=== PATIENT | male | born 1945 | race Caucasian/White ===

== ENCOUNTER 2016-03-15 15:48 | Inpatient (IN) | payer OTHER, MEDICARE ==
[~2016-03-15] VITALS: Ht 182.9 cm; Wt 108.3 kg
[~2016-03-15 15:48] MED LIST: ALEVE220 MG PO; ATORVASTATIN CA20 MG PO; CYANOCOBALAM1000 MCG PO; DECADRON4 MG PO; FENOFIBRATE134 M1 PO; GLIMEPIRIDE1 MG PO; HYZAAR 100-11 TABLET PO; LOSARTAN POTAS100 MG PO; MELOXICAM15 MG PO; METFORMIN HCL500 M1 PO; NORVASC5 MG PO; OMEPRAZOLE20 MG PO
[2016-03-15 18:03] LABS: EOSINOPHIL (%) 0 % (0-5); HEMATOCRIT 34.7 % (38.0-50.0); IMMATURE GRANULOCYTE (%) 0.6 % (0.0-0.7); IMMATURE GRANULOCYTE COUNT 0.9 K/uL; LYMPHOCYTE COUNT 0.4 K/uL (1.0-2.8); MCH 27.4 PG (29.0-34.0); MCHC 34.9 G/DL (30.0-36.0); MONOCYTE (%) 2.8 % (3-12); MONOCYTE COUNT 0.4 K/uL (0-0.8); NEUTROPHIL COUNT 13.3 K/uL (1.8-6.4); RBC DIS.WIDTH-CV 16.1 % (11.8-14.6); RBC DIS.WIDTH-SD 45.1 % (39-53); RED BLOOD COUNT 4.42 M/uL (4.00-5.50)
[2016-03-15 18:04] LABS: MCV 78.5 FL (86-99); WHITE BLOOD COUNT 14.1 K/uL (4.1-10.2)
[2016-03-15 18:10] LABS: CHLORIDE 88 mEq/L (99-109); POTASSIUM 4.4 mEq/L (3.7-5.4); SODIUM 123 mEq/L (136-147)
[2016-03-15 18:13] LABS: ANION GAP 18 MEQ/L (2-14)
[2016-03-15 18:14] LABS: TOTAL BILIRUBIN 0.9 mg/dL (0.0-1.0)
[2016-03-15 18:16] LABS: ALKALINE PHOSPHATASE 36 IU/L (3-129); GFR ESTIMATE (CALCULATED) > 59 mL/min/
[2016-03-15 18:17] LABS: UREA NITROGEN (BUN) 64 mg/dL (9-23)
[2016-03-15 18:19] LABS: GLUCOSE 564 mg/dL (70-99)
[2016-03-15 19:11] LABS: HEMATOLOGY COMMENT 1 SMEAR COMPATIBLE; MEAN PLAT.VOLUME 9.5 uM^3 (9.0-12.4); PLAT.SUFFICIENCY DECREASED; USER ID LYM
[2016-03-15 19:58] LABS: ADD MIUA? NO; BILIRUBIN NEGATIVE; BLOOD NEGATIVE; COLOR YELLOW ((YELLOW)); GLUCOSE (STRIP) >=1000; KETONES 15; LEUKOCYTES NEGATIVE; NITRITE NEGATIVE; PROTEIN (STRIP) NEGATIVE; SPECIFIC GRAVITY 1.032 (1.000-1.030); UCUL ADDED? NO; UROBILINOGEN 0.2 MG/DL (0.2-1.0)
[2016-03-15] MEDS ORDERED: NORVASC5 MG PO (20:15)
[2016-03-15 20:16] LABS: PLATELET COUNT 114 K/uL (156-360)
[2016-03-15] MEDS ORDERED: LOSARTAN POTAS100 MG PO (20:16)
[2016-03-15 20:21] LABS: POINT-OF-CARE METER ID UU13113702
[2016-03-15] MEDS ORDERED: MICRONASE2.5 MG PO (20:25)
[2016-03-15] MEDS ORDERED: GLUCOPHAGE500 MG PO ×2 (20:26)
[2016-03-15] MEDS ORDERED: LORAZEPAM0.5 MG PO (20:27)
[2016-03-15 21:59] LABS: POINT-OF-CARE METER ID UU13113702
[2016-03-15 22:30] VITALS: BP 147/78; BP 148/76
[2016-03-16 00:11] LABS: POTASSIUM 3.8 mEq/L (3.7-5.4); SODIUM 128 mEq/L (136-147)
[2016-03-16 00:12] LABS: GLUCOSE 364 mg/dL (70-99)
[2016-03-16 00:14] LABS: ANION GAP 15 MEQ/L (2-14)
[2016-03-16 00:16] LABS: GFR ESTIMATE (CALCULATED) > 59 mL/min/
[2016-03-16 00:17] LABS: UREA NITROGEN (BUN) 54 mg/dL (9-23)
[2016-03-16 00:21] LABS: CHLORIDE 97 mEq/L (99-109)
[2016-03-16 03:44] VITALS: BP 120/74
[2016-03-16 05:03] LABS: CHLORIDE 98 mEq/L (99-109); POTASSIUM 3.7 mEq/L (3.7-5.4); SODIUM 128 mEq/L (136-147)
[2016-03-16 05:05] LABS: GLUCOSE 286 mg/dL (70-99)
[2016-03-16 05:07] LABS: ANION GAP 10 MEQ/L (2-14)
[2016-03-16 05:09] LABS: GFR ESTIMATE (CALCULATED) > 59 mL/min/
[2016-03-16 05:10] LABS: UREA NITROGEN (BUN) 47 mg/dL (9-23)
[2016-03-16 05:15] LABS: HEMATOCRIT 31.4 % (38.0-50.0); MCHC 34.4 G/DL (30.0-36.0); MCV 78.5 FL (86-99); MEAN PLAT.VOLUME 9.2 uM^3 (9.0-12.4); PLATELET COUNT 101 K/uL (156-360); RBC DIS.WIDTH-CV 15.9 % (11.8-14.6); RBC DIS.WIDTH-SD 43.9 % (39-53)
[2016-03-16 05:16] LABS: WHITE BLOOD COUNT 9.1 K/uL (4.1-10.2)
[2016-03-16 07:59] VITALS: BP 100/64
[2016-03-16 11:32] VITALS: BP 102/63
[2016-03-16 15:36] VITALS: BP 110/66
[2016-03-16 19:45] VITALS: BP 118/60
[2016-03-17] VITALS (7 sets, daily range): BP systolic 100–129; BP diastolic 63–76
[2016-03-17 08:05] LABS: POINT-OF-CARE METER ID UU13113698
[2016-03-17 12:04] LABS: POINT-OF-CARE METER ID UU13113698
[2016-03-18 04:14] VITALS: BP 121/80
[2016-03-18 07:52] LABS: POINT-OF-CARE METER ID UU14174216; POINT-OF-CARE USER ID ENVKC36
[2016-03-18 08:10] VITALS: BP 115/70
[2016-03-18 11:45] VITALS: BP 108/73
[2016-03-18 11:48] LABS: POINT-OF-CARE METER ID UU14174216; POINT-OF-CARE USER ID ENVKC36
[2016-03-18 16:30] VITALS: BP 110/74
[2016-03-18 17:03] LABS: POINT-OF-CARE METER ID UU13113698; POINT-OF-CARE USER ID ENVKC36
[2016-03-18 19:40] VITALS: BP 114/57
[2016-03-18 23:30] VITALS: BP 120/78
[2016-03-19 04:50] VITALS: BP 132/70
[2016-03-19 07:02] LABS: POINT-OF-CARE METER ID UU14174216
[2016-03-19 07:14] LABS: Estimated Average Glucose 280 mg/dL (70-123)
[2016-03-19 07:16] LABS: HEMOGLOBIN A1c (GLYCOHEMOGLOB) 11.4 % HGB (Below 5.7)
[2016-03-19 07:32] LABS: ANION GAP 6 MEQ/L (2-14); CHLORIDE 100 MEQ/L (99-109); GFR ESTIMATE (CALCULATED) > 59 mL/min/; GLUCOSE 140 mg/dL (70-99); POTASSIUM 3.9 MEQ/L (3.7-5.4); SAMPLE HEMOLYSIS CHECK 0; SAMPLE ICTERIC CHECK 0; SAMPLE LIPEMIA CHECK 0; SODIUM 130 MEQ/L (136-147); UREA NITROGEN (BUN) 24 mg/dL (9-23)
[2016-03-19 07:43] LABS: POINT-OF-CARE METER ID UU13113698
[2016-03-19 11:19] LABS: POINT-OF-CARE METER ID UU13113698
[2016-03-19 11:47] VITALS: BP 117/71
[2016-03-19 15:57] LABS: POINT-OF-CARE METER ID UU13113698
[2016-03-19 15:58] VITALS: BP 129/78
[2016-03-19 19:13] VITALS: BP 124/73
[2016-03-19 20:42] LABS: POINT-OF-CARE USER ID ENVMNS
[2016-03-19 23:14] VITALS: BP 120/79
[2016-03-20 03:24] VITALS: BP 125/74
[2016-03-20 07:40] VITALS: BP 112/66
[2016-03-20 08:08] LABS: POINT-OF-CARE METER ID UU13113698; POINT-OF-CARE USER ID ENVKC36
[2016-03-20 14:01] LABS: POINT-OF-CARE METER ID UU13113698
[2016-03-20 15:00] VITALS: BP 107/66
[2016-03-20 16:51] LABS: POINT-OF-CARE METER ID UU14174216; POINT-OF-CARE USER ID ENVKC36
[2016-03-20 20:20] VITALS: BP 119/76
[2016-03-20 21:33] LABS: POINT-OF-CARE METER ID UU13113698
[2016-03-21 00:10] VITALS: BP 129/77
[2016-03-21 03:52] VITALS: BP 116/71
[2016-03-21 07:57] VITALS: BP 128/78
[2016-03-21 09:03] LABS: HEMATOCRIT 30.5 % (38.0-50.0); MCH 27.6 PG (29.0-34.0); MCHC 35.1 G/DL (30.0-36.0); MCV 78.8 FL (86-99); MEAN PLAT.VOLUME 9.5 uM^3 (9.0-12.4); PLATELET COUNT 123 K/uL (156-360); RBC DIS.WIDTH-CV 16.4 % (11.8-14.6); RBC DIS.WIDTH-SD 47.3 % (39-53); RED BLOOD COUNT 3.87 M/uL (4.00-5.50); WHITE BLOOD COUNT 6.6 K/uL (4.1-10.2)
[2016-03-21 09:27] LABS: ALKALINE PHOSPHATASE 33 IU/L (3-129); ANION GAP 12 MEQ/L (2-14); CHLORIDE 95 MEQ/L (99-109); GFR ESTIMATE (CALCULATED) > 59 mL/min/; GLUCOSE 131 mg/dL (70-99); SAMPLE HEMOLYSIS CHECK 0; SAMPLE ICTERIC CHECK 0; SAMPLE LIPEMIA CHECK 0; SODIUM 128 MEQ/L (136-147); TOTAL BILIRUBIN 0.6 MG/DL (0.0-1.0); UREA NITROGEN (BUN) 17 mg/dL (9-23)
[2016-03-21 09:41] LABS: CREATINE KINASE 54 IU/L (1-294)
[2016-03-21 11:29] VITALS: BP 119/74
[2016-03-21 15:51] VITALS: BP 113/74
[2016-03-21 16:06] LABS: URIC ACID 2.1 mg/dL (3.1-9.2)
[2016-03-21 19:00] VITALS: BP 116/75
[2016-03-21 21:27] LABS: POINT-OF-CARE METER ID UU14174216
[2016-03-22 00:20] VITALS: BP 94/53
[2016-03-22 03:15] VITALS: BP 119/79
[2016-03-22 06:48] LABS: HEMATOCRIT 30.4 % (38.0-50.0); MCH 27.4 PG (29.0-34.0); MCHC 34.5 G/DL (30.0-36.0); MCV 79.4 FL (86-99); MEAN PLAT.VOLUME 9.8 uM^3 (9.0-12.4); PLATELET COUNT 133 K/uL (156-360); RBC DIS.WIDTH-CV 16.5 % (11.8-14.6); RBC DIS.WIDTH-SD 48.2 % (39-53); RED BLOOD COUNT 3.83 M/uL (4.00-5.50); WHITE BLOOD COUNT 6.1 K/uL (4.1-10.2)
[2016-03-22 07:00] VITALS: BP 123/82
[2016-03-22 07:21] LABS: ANION GAP 10 MEQ/L (2-14); CHLORIDE 96 MEQ/L (99-109); GFR ESTIMATE (CALCULATED) > 59 mL/min/; POTASSIUM 3.9 MEQ/L (3.7-5.4); SAMPLE HEMOLYSIS CHECK 0; SAMPLE ICTERIC CHECK 0; SAMPLE LIPEMIA CHECK 0; SODIUM 128 MEQ/L (136-147); UREA NITROGEN (BUN) 19 mg/dL (9-23)
[2016-03-22 07:24] LABS: GLUCOSE 230 mg/dL (70-99)
[2016-03-22 07:30] LABS: POINT-OF-CARE METER ID UU13113698
[2016-03-22 07:48] LABS: EOSINOPHIL (%) 0.5 % (0-5); HEMATOLOGY COMMENT 1 SMEAR COMPATIBLE; IMMATURE GRANULOCYTE COUNT 0.2 K/uL; LYMPHOCYTE COUNT 0.7 K/uL (1.0-2.8); MONOCYTE (%) 1.6 % (3-12); MONOCYTE COUNT 0.1 K/uL (0-0.8); NEUTROPHIL (%) 82.7 % (45-76); NEUTROPHIL COUNT 5.1 K/uL (1.8-6.4); USER ID STC
[2016-03-22 10:02] LABS: POINT-OF-CARE METER ID UU13113698; POINT-OF-CARE USER ID ENVKC36
[2016-03-22 11:10] LABS: POINT-OF-CARE METER ID UU13113698
[2016-03-22 11:30] VITALS: BP 125/88
[2016-03-22 15:45] VITALS: BP 120/77
[2016-03-22 19:00] VITALS: BP 112/60
[2016-03-22 20:04] LABS: POINT-OF-CARE METER ID UU14149398
[2016-03-22 22:00] LABS: POINT-OF-CARE METER ID UU14149396
[2016-03-23] VITALS: BP 120/68
[2016-03-23 06:46] LABS: HEMATOCRIT 32.2 % (38.0-50.0); MCH 27.6 PG (29.0-34.0); MCHC 34.5 G/DL (30.0-36.0); MCV 80.1 FL (86-99); MEAN PLAT.VOLUME 9.2 uM^3 (9.0-12.4); PLATELET COUNT 130 K/uL (156-360); RBC DIS.WIDTH-CV 16.8 % (11.8-14.6); RED BLOOD COUNT 4.02 M/uL (4.00-5.50); WHITE BLOOD COUNT 5.5 K/uL (4.1-10.2)
[2016-03-23 07:04] LABS: EOSINOPHIL (%) 1.3 % (0-5); EOSINOPHIL COUNT 0.1 K/uL (0-0.3); IMMATURE GRANULOCYTE (%) 4.2 % (0.0-0.7); IMMATURE GRANULOCYTE COUNT 0.2 K/uL; LYMPHOCYTE COUNT 0.4 K/uL (1.0-2.8); MONOCYTE (%) 12.2 % (3-12); MONOCYTE COUNT 0.7 K/uL (0-0.8); NEUTROPHIL (%) 74.8 % (45-76); NEUTROPHIL COUNT 4.1 K/uL (1.8-6.4)
[2016-03-23 07:10] LABS: ALKALINE PHOSPHATASE 39 IU/L (3-129); ANION GAP 9 MEQ/L (2-14); CHLORIDE 96 MEQ/L (99-109); GFR ESTIMATE (CALCULATED) > 59 mL/min/; SAMPLE HEMOLYSIS CHECK 0; SAMPLE ICTERIC CHECK 0; SAMPLE LIPEMIA CHECK 0; SODIUM 130 MEQ/L (136-147); TOTAL BILIRUBIN 0.6 MG/DL (0.0-1.0); UREA NITROGEN (BUN) 21 mg/dL (9-23)
[2016-03-23 07:11] LABS: GLUCOSE 110 mg/dL (70-99)
[2016-03-23 07:39] LABS: POINT-OF-CARE METER ID UU14149396
[2016-03-23 07:49] LABS: HEMATOLOGY COMMENT 1 SMEAR COMPATIBLE; USER ID CL
[2016-03-23 08:00] VITALS: BP 118/70
[2016-03-23 10:58] LABS: POINT-OF-CARE METER ID UU13113698
[2016-03-23 11:27] VITALS: BP 117/63
[2016-03-23] MEDS ORDERED: NOVOLOG PE100 UNITS/ SC (11:59)
[2016-03-23] MEDS ORDERED: SODIUM CHLORIDE1 G1 PO (11:59)
[2016-03-23] MEDS ORDERED: LEVEMIR100 UNIT/2 SC (11:59)
[2016-03-23 12:00] LABS: POINT-OF-CARE METER ID UU14149396
[2016-03-23] MEDS ORDERED: DEXAMETHASONE4 MG PO (12:10)
== END 2016-03-23 13:53 | disposition home or self-care (01) | DRG 637 ==
LOC: EME 15:48 → 4EAST 20:33 → EDOF 20:33 → 4EAST 22:38 → 4SOUTH 03-22 19:42
PROVIDERS: Emergency Medicine; Family Medicine; Hospitalist; Internal Medicine; Student in an Organized Health Care Education/Training Program
DX: E13.10 Other specified diabetes mellitus with ketoacidosis without coma (principal); G93.6 Cerebral edema; C34.90 Malignant neoplasm of unspecified part of unspecified bronchus or lung; C79.31 Secondary malignant neoplasm of brain; F05 Delirium due to known physiological condition; E22.2 Syndrome of inappropriate secretion of antidiuretic hormone; L89.300 Pressure ulcer of unspecified buttock, unstageable; I10 Essential (primary) hypertension; K21.9 Gastro-esophageal reflux disease without esophagitis; D50.9 Iron deficiency anemia, unspecified; E86.0 Dehydration; D69.6 Thrombocytopenia, unspecified; M62.81 Muscle weakness (generalized); K59.00 Constipation, unspecified; F43.20 Adjustment disorder, unspecified; E78.5 Hyperlipidemia, unspecified; Z55.0 Illiteracy and low-level literacy; Z87.891 Personal history of nicotine dependence; Z79.4 Long term (current) use of insulin; Z80.0 Family history of malignant neoplasm of digestive organs
CPT/HCPCS: 77290; 77307; 77331; 77334; 77336; 77412; 77417; 80048; 80048 91; 80053; 80069; 81003; 82009; 82550; 82948; 83036; 83605; 83930; 83935; 84300; 84443; 84550; 85025; 85027; 87040; 94799; 99281; 99285; J1644; J1650; J1815; J7030; J8540

== ENCOUNTER 2016-03-25 10:36 | Inpatient (IN) | payer OTHER, MEDICARE ==
[~2016-03-25] VITALS: Ht 182.9 cm; Wt 89.8 kg
[~2016-03-25 10:36] MED LIST changes: +DEXAMETHASONE4 MG PO; +GLUCOPHAGE500 MG PO; +LEVEMIR100 UNIT/2 SC; +LORAZEPAM0.5 MG PO; +MICRONASE2.5 MG PO; +NOVOLOG PE100 UNITS/ SC; +SODIUM CHLORIDE1 G1 PO
[2016-03-25 12:13] LABS: HEMATOCRIT 29.5 % (38.0-50.0); MCH 27.5 PG (29.0-34.0); MCHC 34.2 G/DL (30.0-36.0); MCV 80.4 FL (86-99); MEAN PLAT.VOLUME 9.2 uM^3 (9.0-12.4); PLATELET COUNT 127 K/uL (156-360); RBC DIS.WIDTH-CV 16.8 % (11.8-14.6); RBC DIS.WIDTH-SD 47.2 % (39-53); RED BLOOD COUNT 3.67 M/uL (4.00-5.50); WHITE BLOOD COUNT 5.9 K/uL (4.1-10.2)
[2016-03-25 12:20] LABS: EOSINOPHIL (%) 0.3 % (0-5); IMMATURE GRANULOCYTE (%) 0.8 % (0.0-0.7); IMMATURE GRANULOCYTE COUNT 0.5 K/uL; LYMPHOCYTE COUNT 0.2 K/uL (1.0-2.8); MONOCYTE (%) 2.4 % (3-12); MONOCYTE COUNT 0.1 K/uL (0-0.8); NEUTROPHIL (%) 93.1 % (45-76); NEUTROPHIL COUNT 5.5 K/uL (1.8-6.4)
[2016-03-25 12:24] LABS: CHLORIDE 99 mEq/L (99-109); POTASSIUM 3.6 mEq/L (3.7-5.4); SODIUM 131 mEq/L (136-147)
[2016-03-25 12:27] LABS: GLUCOSE 89 mg/dL (70-99)
[2016-03-25 12:28] LABS: ANION GAP 13 MEQ/L (2-14)
[2016-03-25 12:29] LABS: TOTAL BILIRUBIN 0.7 mg/dL (0.0-1.0)
[2016-03-25 12:30] LABS: ALKALINE PHOSPHATASE 45 IU/L (3-129); GFR ESTIMATE (CALCULATED) > 59 mL/min/
[2016-03-25 12:31] LABS: UREA NITROGEN (BUN) 22 mg/dL (9-23)
[2016-03-25 14:47] LABS: ADD MIUA? NO; BILIRUBIN NEGATIVE; BLOOD NEGATIVE; COLOR YELLOW ((YELLOW)); GLUCOSE (STRIP) 250; KETONES NEGATIVE; LEUKOCYTES NEGATIVE; NITRITE NEGATIVE; PROTEIN (STRIP) 30; SPECIFIC GRAVITY 1.024 (1.000-1.030); UCUL ADDED? NO
[2016-03-25] MEDS ORDERED: NOVOLOG PE100 UNITS/ SC (17:47)
[2016-03-25] MEDS ORDERED: DECADRON4 MG PO (19:05)
[2016-03-25 20:50] VITALS: BP 107/59
[2016-03-25 22:26] LABS: POINT-OF-CARE METER ID UU13113717
[2016-03-26 00:13] VITALS: BP 99/54
[2016-03-26 06:03] LABS: POINT-OF-CARE METER ID UU13113717
[2016-03-26 07:13] LABS: HEMATOCRIT 27.8 % (38.0-50.0); MCH 27.4 PG (29.0-34.0); MCHC 33.5 G/DL (30.0-36.0); PLATELET COUNT 107 K/uL (156-360); RBC DIS.WIDTH-CV 17.4 % (11.8-14.6); RBC DIS.WIDTH-SD 52.2 % (39-53); RED BLOOD COUNT 3.39 M/uL (4.00-5.50); WHITE BLOOD COUNT 4.2 K/uL (4.1-10.2)
[2016-03-26 07:46] LABS: ANION GAP 7 MEQ/L (2-14); CHLORIDE 104 MEQ/L (99-109); GFR ESTIMATE (CALCULATED) > 59 mL/min/; GLUCOSE 62 mg/dL (70-99); POTASSIUM 3.7 MEQ/L (3.7-5.4); SAMPLE HEMOLYSIS CHECK 0; SAMPLE ICTERIC CHECK 0; SAMPLE LIPEMIA CHECK 0; SODIUM 135 MEQ/L (136-147); UREA NITROGEN (BUN) 20 mg/dL (9-23)
[2016-03-26 08:13] VITALS: BP 98/55
[2016-03-26 11:18] LABS: POINT-OF-CARE METER ID UU13113725
[2016-03-26 15:50] LABS: POINT-OF-CARE METER ID UU13113725
[2016-03-26 16:02] VITALS: BP 110/58
[2016-03-26 23:40] VITALS: BP 113/59
[2016-03-27 07:32] LABS: HEMATOCRIT 26.3 % (38.0-50.0); MCH 27.5 PG (29.0-34.0); MCHC 33.8 G/DL (30.0-36.0); MCV 81.2 FL (86-99); MEAN PLAT.VOLUME 8.7 uM^3 (9.0-12.4); PLATELET COUNT 99 K/uL (156-360); RBC DIS.WIDTH-CV 17.5 % (11.8-14.6); RBC DIS.WIDTH-SD 52.1 % (39-53); RED BLOOD COUNT 3.24 M/uL (4.00-5.50); WHITE BLOOD COUNT 4.2 K/uL (4.1-10.2)
[2016-03-27 07:39] LABS: EOSINOPHIL (%) 0 % (0-5); LYMPHOCYTE COUNT 0.1 K/uL (1.0-2.8); MONOCYTE (%) 2.9 % (3-12); MONOCYTE COUNT 0.1 K/uL (0-0.8); NEUTROPHIL (%) 93.2 % (45-76); NEUTROPHIL COUNT 3.9 K/uL (1.8-6.4)
[2016-03-27 08:03] LABS: ANION GAP 7 MEQ/L (2-14); CHLORIDE 103 MEQ/L (99-109); GFR ESTIMATE (CALCULATED) > 59 mL/min/; GLUCOSE 84 mg/dL (70-99); POTASSIUM 3.5 MEQ/L (3.7-5.4); SAMPLE HEMOLYSIS CHECK 0; SAMPLE ICTERIC CHECK 0; SAMPLE LIPEMIA CHECK 0; SODIUM 134 MEQ/L (136-147); UREA NITROGEN (BUN) 12 mg/dL (9-23)
[2016-03-27 08:34] VITALS: BP 154/89
[2016-03-27 13:34] LABS: POINT-OF-CARE METER ID UU13113725
[2016-03-27 15:58] LABS: POINT-OF-CARE METER ID UU13113725
[2016-03-27 16:24] VITALS: BP 123/60
[2016-03-27 21:46] LABS: POINT-OF-CARE METER ID UU13113725
[2016-03-27 22:09] LABS: POINT-OF-CARE METER ID UU13113725
[2016-03-27 22:29] LABS: POINT-OF-CARE METER ID UU13113725
[2016-03-27 23:16] VITALS: BP 161/72
[2016-03-27 23:45] LABS: POINT-OF-CARE METER ID UU13113725
[2016-03-28] VITALS (22 sets, daily range): BP systolic 94–127; BP diastolic 56–77
[2016-03-28 02:03] LABS: BASE EXCESS 5.4 mEq/L (-3 to +3); BICARBONATE 28.7 mEq/L (22-26); CARBOXY HGB 0 % (0-5); COMMENTS - BLOOD GASES C+A+; METHEMOGLOBIN 0.7 % (0-1.5); PCO2 36 mm Hg (35-45); PO2 61 mm Hg (80-100); SITE RR; pH 7.51 (7.35-7.45)
[2016-03-28 02:04] LABS: DEVICE HHFNC/NRBM; FI02 100 %; O2 FLOW 60 L/MIN
[2016-03-28 02:30] LABS: HEMATOCRIT 27.4 % (38.0-50.0); MCH 27.3 PG (29.0-34.0); MCHC 33.9 G/DL (30.0-36.0); MCV 80.4 FL (86-99); MEAN PLAT.VOLUME 8.4 uM^3 (9.0-12.4); PLATELET COUNT 109 K/uL (156-360); RBC DIS.WIDTH-CV 17.4 % (11.8-14.6); RBC DIS.WIDTH-SD 48.8 % (39-53); RED BLOOD COUNT 3.41 M/uL (4.00-5.50); WHITE BLOOD COUNT 4.4 K/uL (4.1-10.2)
[2016-03-28 02:34] LABS: EOSINOPHIL (%) 0.5 % (0-5); IMMATURE GRANULOCYTE (%) 0.7 % (0.0-0.7); IMMATURE GRANULOCYTE COUNT 0.3 K/uL; LYMPHOCYTE COUNT 0.1 K/uL (1.0-2.8); MONOCYTE (%) 2.3 % (3-12); MONOCYTE COUNT 0.1 K/uL (0-0.8); NEUTROPHIL (%) 93.5 % (45-76); NEUTROPHIL COUNT 4.1 K/uL (1.8-6.4)
[2016-03-28 02:42] LABS: CHLORIDE 100 mEq/L (99-109); POTASSIUM 3.6 mEq/L (3.7-5.4); SODIUM 134 mEq/L (136-147)
[2016-03-28 02:44] LABS: GLUCOSE 103 mg/dL (70-99)
[2016-03-28 02:45] LABS: ANION GAP 9 MEQ/L (2-14)
[2016-03-28 02:46] LABS: TOTAL BILIRUBIN 0.6 mg/dL (0.0-1.0)
[2016-03-28 02:48] LABS: ALKALINE PHOSPHATASE 44 IU/L (3-129); GFR ESTIMATE (CALCULATED) > 59 mL/min/
[2016-03-28 02:49] LABS: UREA NITROGEN (BUN) 13 mg/dL (9-23)
[2016-03-28 04:03] LABS: METH RESISTANT S AUREUS PCR NEGATIVE (NEGATIVE)
[2016-03-28 04:11] LABS: PROBE CHECK PASS; SPECIMEN PROCESSING CONTROL PASS
[2016-03-28 04:32] LABS: ADD MIUA? YES; BILIRUBIN NEGATIVE; BLOOD TRACE; COLOR YELLOW ((YELLOW)); GLUCOSE (STRIP) 250; KETONES NEGATIVE; LEUKOCYTES NEGATIVE; NITRITE NEGATIVE; PROTEIN (STRIP) 30; SPECIFIC GRAVITY 1.012 (1.000-1.030)
[2016-03-28 04:47] LABS: BACTERIA 2+; CASTS PRESENT /LPF; EPITHELIAL CELLS 1+; MUCUS 1+; RED BLOOD CELLS 0-5 /HPF (0-5); UCUL ADDED? NO; WHITE BLOOD CELLS 0-5 /HPF (0-5)
[2016-03-28 04:48] LABS: AMORPHOUS URATES CRYSTALS 1+; CRYSTALS PRESENT; FINE GRANULAR CASTS 0-5 /LPF
[2016-03-28 05:36] LABS: PCO2 35 mm Hg (35-45); PO2 86 mm Hg (80-100); pH 7.53 (7.35-7.45)
[2016-03-28 05:37] LABS: BASE EXCESS 6.2 mEq/L (-3 to +3); BICARBONATE 29.2 mEq/L (22-26); CARBOXY HGB 0 % (0-5); METHEMOGLOBIN 0.4 % (0-1.5)
[2016-03-28 05:42] LABS: HEMATOCRIT 25.9 % (38.0-50.0); MCH 27.6 PG (29.0-34.0); MCHC 33.6 G/DL (30.0-36.0); MCV 82.2 FL (86-99); MEAN PLAT.VOLUME 9.3 uM^3 (9.0-12.4); PLATELET COUNT 87 K/uL (156-360); RBC DIS.WIDTH-CV 17.7 % (11.8-14.6); RBC DIS.WIDTH-SD 53.2 % (39-53); RED BLOOD COUNT 3.15 M/uL (4.00-5.50); WHITE BLOOD COUNT 3.9 K/uL (4.1-10.2)
[2016-03-28 06:07] LABS: EOSINOPHIL (%) 0.5 % (0-5); IMMATURE GRANULOCYTE (%) 0.5 % (0.0-0.7); LYMPHOCYTE COUNT 0.1 K/uL (1.0-2.8); MONOCYTE (%) 2.5 % (3-12); MONOCYTE COUNT 0.1 K/uL (0-0.8); NEUTROPHIL (%) 92.9 % (45-76); NEUTROPHIL COUNT 3.7 K/uL (1.8-6.4)
[2016-03-28 06:11] LABS: ANION GAP 10 MEQ/L (2-14); CHLORIDE 100 MEQ/L (99-109); GFR ESTIMATE (CALCULATED) > 59 mL/min/; GLUCOSE 82 mg/dL (70-99); POTASSIUM 3.4 MEQ/L (3.7-5.4); SAMPLE HEMOLYSIS CHECK 0; SAMPLE ICTERIC CHECK 0; SAMPLE LIPEMIA CHECK 0; SODIUM 136 MEQ/L (136-147); UREA NITROGEN (BUN) 13 mg/dL (9-23)
[2016-03-28 06:39] LABS: ANISOCYTOSIS 1+; BURR CELLS FEW; HEMATOLOGY COMMENT 1 REV; MACROCYTES FEW; MICROCYTOSIS FEW; OVALOCYTES 1+; PLAT.SUFFICIENCY DECREASED
[2016-03-28 22:19] LABS: POINT-OF-CARE METER ID UU13113731
[2016-03-29] VITALS (15 sets, daily range): BP systolic 100–135; BP diastolic 63–81
[2016-03-29 06:19] LABS: ANION GAP 15 MEQ/L (2-14); CHLORIDE 96 MEQ/L (99-109); GFR ESTIMATE (CALCULATED) > 59 mL/min/; MAGNESIUM 1.7 mg/dl (1.3-2.7); POTASSIUM 3.9 MEQ/L (3.7-5.4); SAMPLE HEMOLYSIS CHECK 0; SAMPLE ICTERIC CHECK 0; SAMPLE LIPEMIA CHECK 0; SODIUM 135 MEQ/L (136-147); UREA NITROGEN (BUN) 17 mg/dL (9-23)
[2016-03-29 06:30] LABS: HEMATOCRIT 28.2 % (38.0-50.0); MCH 27.4 PG (29.0-34.0); MCV 82.9 FL (86-99); MEAN PLAT.VOLUME 9.4 uM^3 (9.0-12.4); PLATELET COUNT 96 K/uL (156-360); RBC DIS.WIDTH-CV 17.6 % (11.8-14.6); RBC DIS.WIDTH-SD 53.4 % (39-53); WHITE BLOOD COUNT 3.4 K/uL (4.1-10.2)
[2016-03-29 06:54] LABS: GLUCOSE 387 mg/dL (70-99)
[2016-03-29 12:13] LABS: POINT-OF-CARE METER ID UU14174217
[2016-03-29 16:37] LABS: POINT-OF-CARE METER ID UU14174217
[2016-03-29 22:14] LABS: POINT-OF-CARE METER ID UU14174217
[2016-03-30] VITALS (13 sets, daily range): BP systolic 95–134; BP diastolic 58–85
[2016-03-30 02:47] LABS: EOSINOPHIL (%) 0 % (0-5); HEMATOCRIT 28.9 % (38.0-50.0); IMMATURE GRANULOCYTE (%) 0.8 % (0.0-0.7); IMMATURE GRANULOCYTE COUNT 0.4 K/uL; LYMPHOCYTE COUNT 0.1 K/uL (1.0-2.8); MCHC 33.2 G/DL (30.0-36.0); MCV 81.4 FL (86-99); MEAN PLAT.VOLUME 9.1 uM^3 (9.0-12.4); MONOCYTE COUNT 0.1 K/uL (0-0.8); NEUTROPHIL (%) 94.8 % (45-76); NEUTROPHIL COUNT 4.7 K/uL (1.8-6.4); PLATELET COUNT 123 K/uL (156-360); RBC DIS.WIDTH-CV 17.1 % (11.8-14.6); RBC DIS.WIDTH-SD 49.1 % (39-53); RED BLOOD COUNT 3.55 M/uL (4.00-5.50)
[2016-03-30 02:51] LABS: CHLORIDE 98 mEq/L (99-109); SODIUM 139 mEq/L (136-147)
[2016-03-30 02:52] LABS: MAGNESIUM 1.6 mg/dL (1.3-2.7); POTASSIUM 3.1 mEq/L (3.7-5.4)
[2016-03-30 02:53] LABS: GLUCOSE 209 mg/dL (70-99)
[2016-03-30 02:55] LABS: ANION GAP 10 MEQ/L (2-14)
[2016-03-30 02:57] LABS: GFR ESTIMATE (CALCULATED) > 59 mL/min/
[2016-03-30 02:58] LABS: UREA NITROGEN (BUN) 24 mg/dL (9-23)
[2016-03-30 07:51] LABS: POINT-OF-CARE METER ID UU14174217
[2016-03-30 12:08] LABS: POINT-OF-CARE METER ID UU13113748
== END 2016-03-30 19:25 | DRG 91 ==
LOC: EME 10:36 → EDOF 16:53 → 4WEST 16:53 → 5EAST 20:26 → 4WEST 03-28 02:36
PROVIDERS: Emergency Medicine; Internal Medicine; Internal Medicine Critical Care Medicine; Surgery
DX: G72.0 Drug-induced myopathy (principal); J96.01 Acute respiratory failure with hypoxia; J18.9 Pneumonia, unspecified organism; L89.322 Pressure ulcer of left buttock, stage 2; L89.312 Pressure ulcer of right buttock, stage 2; D61.818 Other pancytopenia; C34.90 Malignant neoplasm of unspecified part of unspecified bronchus or lung; C79.31 Secondary malignant neoplasm of brain; Z51.5 Encounter for palliative care; E87.1 Hypo-osmolality and hyponatremia; I95.9 Hypotension, unspecified; Z66 Do not resuscitate; Z86.711 Personal history of pulmonary embolism; N28.9 Disorder of kidney and ureter, unspecified; E78.5 Hyperlipidemia, unspecified; Z92.3 Personal history of irradiation; Z87.891 Personal history of nicotine dependence; Z99.81 Dependence on supplemental oxygen; K21.9 Gastro-esophageal reflux disease without esophagitis; I10 Essential (primary) hypertension; E88.09 Other disorders of plasma-protein metabolism, not elsewhere classified; T38.0X5A Adverse effect of glucocorticoids and synthetic analogues, initial encounter; Y95 Nosocomial condition; E11.649 Type 2 diabetes mellitus with hypoglycemia without coma
CPT/HCPCS: 36600; 71010; 77412; 77417; 80048; 80048 91; 80053; 80202; 81003; 82803; 82948; 83605; 83735; 84100; 85025; 85025 91; 85027; 87040; 87502; 87641; 93005; 94640; 94640 76; 94760; 94799; 96413; 99202; 99281; 99285; G0463 25; G8978 CL; G8979 CJ; G8987 GO CM; G8988 GO CK; J0456; J0692; J1644; J1815; J1940; J2060; J2270; J2930; J3370; J7030; J7042; J7050; J8540; J9271